=== PATIENT | female | born 1960 | race Caucasian/White ===

== ENCOUNTER 2021-11-10 10:12 | Outpatient (CLI) | payer OTHER, SELFPAY ==
[2021-11-10 13:46] LABS: Albumin* 4.2 g/dL (3.3-5.0); Chloride* 104 mmol/L (96-114)
[2021-11-10 13:47] LABS: Potassium* 4.9 mmol/L (3.6-5.1); Sodium* 138 mmol/L (135-149)
[2021-11-10 13:49] LABS: Alkaline Phosphatase* 94 U/L (40-150); Aspartate Amino Transferase* 26 U/L (12-35); Bilirubin Total* 0.6 mg/dL (0.1-1.5); Blood Urea Nitrogen* 19 mg/dL (7-30); Carbon Dioxide* 27 mmol/L (20-32); Cholesterol* 189 mg/dL (90-199); Creatinine* 0.7 mg/dL (0.5-1.5); Estimated Glomerular Filt Rate 98 ml/min; Glucose* 97 mg/dL (60-115); Total Protein* 7.3 g/dL (6.0-8.3); Triglycerides* 60 mg/dL (40-149)
[2021-11-10 13:50] LABS: Alanine Aminotransferase* 19 U/L (4-35); Calcium* 9.4 mg/dL (8.4-10.6); HDL Cholesterol* 91 mg/dL (>=50); LDL Cholesterol Calculated 86 mg/dL (<100)
== END 2021-11-10 10:13 | disposition home or self-care (01) ==
PROVIDERS: PCP Physician Assistant Medical; Visit Provider Physician Assistant Medical
DX: Z00.00 Encounter for general adult medical examination without abnormal findings (principal); Z13.6 Encounter for screening for cardiovascular disorders; Z13.29 Encounter for screening for other suspected endocrine disorder; Z13.0 Encounter for screening for diseases of the blood and blood-forming organs and certain disorders involving the immune mechanism
CPT/HCPCS: 80053; 80061; 84443

== ENCOUNTER 2022-11-26 10:02 | Outpatient (CLI) | payer OTHER, SELFPAY | END 2022-11-26 10:03 | disposition home or self-care (01) | LOC: LKVREF 10:03 | PROVIDERS: PCP Physician Assistant Medical; Visit Provider Physician Assistant Medical | DX: Z00.00 Encounter for general adult medical examination without abnormal findings (principal); Z13.0 Encounter for screening for diseases of the blood and blood-forming organs and certain disorders involving the immune mechanism; Z13.6 Encounter for screening for cardiovascular disorders; Z13.1 Encounter for screening for diabetes mellitus; Z13.29 Encounter for screening for other suspected endocrine disorder | CPT/HCPCS: 80053; 80061; 84443 ==

== ENCOUNTER 2022-12-09 12:55 | Outpatient (CLI) | payer OTHER, SELFPAY ==
--- NOTE | 2022-12-09 13:00 | CRLHL7_ITS ---
For Patients: As a result of the Century Cures Act, medical imaging exams and procedure reports are released immediately into your electronic medical record. You may view this report before your referring provider. If you have questions, please contact your health care provider. Indication: Dizziness. Technique: Multiplanar, multisequence MRI of the brain was performed without and with intravenous contrast. Contrast: 20 cc Dotarem. Comparison: None relevant available at this institution. Findings: The corpus callosum, pituitary gland and clivus appear intact. Mild degenerative change visualized upper cervical spine. There is no restricted diffusion. No intracranial hemorrhage. The ventricles are proportionate to the cerebral sulci. The 4th ventricle appears midline. The basal cisterns appear patent. No abnormal extra-axial fluid collection identified. There is no intracranial mass, abnormal mass-effect or midline shift identified. No abnormal enhancement. Major intracranial vascular flow voids appear grossly intact. Both globes are preserved. Moderate paranasal sinus mucosal disease. Trace mastoid effusions. Impression: 1. No acute/subacute infarct. 2. Moderate sinusitis. Dictated by Eric Ramirez MD @ 12/09/2022 3:09:38 PM (Electronically Signed)
--- NOTE | 2022-12-09 14:00 | CRLHL7_ITS ---
For Patients: As a result of the Century Cures Act, medical imaging exams and procedure reports are released immediately into your electronic medical record. You may view this report before your referring provider. If you have questions, please contact your health care provider. Indication: Dizziness. Technique: 3D [id number] image acquisitions performed before and after IV gadolinium. MIP reconstructions with rotational presentation. Contrast: 20 cc Dotarem. Comparison: MR brain the same day. Findings: No evidence for hemodynamically significant internal carotid artery stenosis by NASCET criteria. The cervical segments of both vertebral arteries are patent. The visualized portions of the aortic arch, great vessel origins and proximal subclavian arteries are unremarkable. Impression: 1. No evidence for hemodynamically significant ICA stenosis by NASCET criteria. 2. No evidence for carotid or vertebral artery dissection in the neck. Dictated by Eric Ramirez MD @ 12/09/2022 3:12:37 PM (Electronically Signed)
== END 2022-12-09 12:56 | disposition home or self-care (01) ==
LOC: MRI 12:56
PROVIDERS: PCP Physician Assistant Medical; Visit Provider Physician Assistant Medical
DX: R42 Dizziness and giddiness (principal); J32.9 Chronic sinusitis, unspecified
CPT/HCPCS: 70549; 70553; A9575

== ENCOUNTER 2023-12-29 11:11 | Outpatient (CLI) | payer OTHER, SELFPAY ==
[2023-12-29 11:49] LABS: Lab Add On Test New Spec Needed
== END 2023-12-29 11:12 | disposition home or self-care (01) ==
PROVIDERS: PCP Physician Assistant Medical; Visit Provider Physician Assistant Medical
DX: R41.89 Other symptoms and signs involving cognitive functions and awareness (principal); R19.7 Diarrhea, unspecified
CPT/HCPCS: 80053; 82306; 82607; 83690; 84443

== ENCOUNTER 2024-10-05 08:18 | Outpatient (CLI) | payer OTHER, SELFPAY | END 2024-10-05 08:19 | disposition home or self-care (01) | LOC: NFLDREF 10-09 17:30 | PROVIDERS: PCP Physician Assistant Medical; Referring Provider Physician Assistant Medical; Visit Provider Physician Assistant Medical | DX: R19.7 Diarrhea, unspecified (principal) | CPT/HCPCS: 83789; 87045; 87046; 87147; 87177; 87209; 87338; 87427; 87493; 87505 ==

== ENCOUNTER 2024-10-09 08:25 | Outpatient (CLI) | payer OTHER, SELFPAY | END 2024-10-09 08:26 | disposition home or self-care (01) | LOC: NFLDREF 10-10 15:31 | PROVIDERS: PCP Physician Assistant Medical; Referring Provider Physician Assistant Medical; Visit Provider Physician Assistant Medical | DX: R19.7 Diarrhea, unspecified (principal) | CPT/HCPCS: 87338 ==